=== PATIENT | female | born 1945 | race Caucasian/White ===

== ENCOUNTER → 2018-10-23 13:39 | Outpatient (CLI) | payer MEDICARE, SELFPAY | PROVIDERS: PCP Family Medicine; Visit Provider Family Medicine | DX: M85.852 Other specified disorders of bone density and structure, left thigh (principal); Z78.0 Asymptomatic menopausal state; Z90.722 Acquired absence of ovaries, bilateral | CPT/HCPCS: 77080 ==

== ENCOUNTER → 2018-10-31 11:51 | Outpatient (CLI) | payer MEDICARE, SELFPAY ==
--- NOTE | 2018-10-31 | DI.MG.S_ITS ---
BILATERAL DIGITAL SCREENING MAMMOGRAM 3D/2D WITH CAD: 10/31/2018 CLINICAL: Routine screening. Comparison is made to exams dated: 11/30/2016 mammogram, 06/29/2015 mammogram - [facility], and 11/14/2013 mammogram - [facility]. The tissue of both breasts is heterogeneously dense. This may lower the sensitivity of mammography. Current study was also evaluated with a Computer Aided Detection (CAD) system. No significant masses, calcifications, or other findings are seen in either breast. There has been no significant interval change. IMPRESSION: NEGATIVE There is no mammographic evidence of malignancy. A 1 year screening mammogram is recommended. This exam was interpreted at Station ID: [id number]. NOTE: For mammograms, a report in lay terms will be sent to the patient. Approximately 15% of breast malignancies will not be visualized mammographically. In the management of a palpable breast mass, a negative mammogram must not discourage biopsy of a clinically suspicious lesion. Electronically Signed By: Ayan saxena/chad:10/31/2018 18:26:04 copy to: Michael Garvey letter sent: Normal Exam ACR BI-RADS Category 1: Negative 3341F
== END ==
PROVIDERS: PCP Family Medicine; Visit Provider Family Medicine
DX: Z12.31 Encounter for screening mammogram for malignant neoplasm of breast (principal)
CPT/HCPCS: 77063; 77067

== ENCOUNTER → 2020-05-23 15:09 | Outpatient (CLI) | payer MEDICARE, SELFPAY ==
--- NOTE | 2020-05-23 15:10 | DI.CT.S_ITS ---
PROCEDURE: CT HEAD/BRAIN WO CON INDICATIONS: GLF, R forehead and nasal pain, R eyelid bruisng r/o basalfx TECHNIQUE: Noncontrast 4.5 mm thick angled axial sections acquired from the foramen magnum to the vertex, with coronal and sagittal reformats. For radiation dose reduction, the following was used: automated exposure control, adjustment of mA and/or kV according to patient size. COMPARISON: None. FINDINGS: Image quality: Excellent. CSF spaces: Basal cisterns are patent. No extra-axial fluid collections. Ventricles are normal in size and shape. Brain: No midline shift. No intracranial masses or hemorrhage. Still-white matter interface is normal. Skull and face: Calvarium and visualized facial bones are intact, without suspicious lesions. Sinuses: Visualized sinuses and mastoids are clear. IMPRESSION: Normal for age, source of current pain after trauma symptoms is not seen. Dictated by: Bird Weldon M.D. on 05/23/2020 at 15:42 Approved by: Bird Weldon M.D. on 05/23/2020 at 15:42
--- NOTE | 2020-05-23 15:13 | DI.CT.S_ITS ---
PROCEDURE: CT FACIAL BONES WO CON INDICATIONS: GLF, R forehead and nasal pain TECHNIQUE: Noncontrast 2.5 mm thick axial images acquired from the mandible through the frontal sinuses, with coronal and sagittal reformatting. For radiation dose reduction, the following was used: automated exposure control, adjustment of mA and/or kV according to patient size. COMPARISON: None. FINDINGS: Image quality: Excellent. Bones and teeth: Orbital calloway are intact. Sinus calloway show no fracture or deformity. Nasal bones show bilateral slightly impacted acute appearing nasal bone fractures. The midline nasal septum appears intact. Visualized portions of the mandible demonstrate no fractures or subluxation. Zygomatic arches are intact. Pterygoid plates are intact. Visualized portions of the skull base and auditory canals are intact. Sinuses: Paranasal sinuses are aerated, without fluid levels, mucosal thickening, or mucoceles. Mastoid air cells are aerated. Soft tissues: No edema, masses, or fluid collections. No enlarged lymph nodes. No soft tissue lacerations or debris. Vascular: Visualized vascular structures appear normal in the absence of contrast. Bony vascular foramina and canals are intact. IMPRESSION: Isolated finding of bilateral slightly impacted acute nasal bone fractures. No midline nasal septal fracture or traumatic deviation is present. Dictated by: Bird Weldon M.D. on 05/23/2020 at 15:42 Approved by: Bird Weldon M.D. on 05/23/2020 at 15:44
== END ==
PROVIDERS: PCP Student in an Organized Health Care Education/Training Program; Referring Provider Nurse Practitioner; Visit Provider Nurse Practitioner
DX: S09.90XA Unspecified injury of head, initial encounter (principal); S00.11XA Contusion of right eyelid and periocular area, initial encounter; S09.93XA Unspecified injury of face, initial encounter; R51 Headache; J34.89 Other specified disorders of nose and nasal sinuses; X58.XXXA Exposure to other specified factors, initial encounter
CPT/HCPCS: 70450; 70486

== ENCOUNTER → 2021-02-15 16:52 | Outpatient (CLI) | payer MEDICARE, SELFPAY ==
--- NOTE | 2021-02-15 | DI.MG.S_ITS ---
BILATERAL DIGITAL SCREENING MAMMOGRAM 3D/2D WITH CAD: 02/15/2021 CLINICAL: Routine screening. Comparison is made to exams dated: 10/31/2018 mammogram, 11/30/2016 mammogram, 06/29/2015 mammogram - [facility], and 11/14/2013 mammogram - [facility]. The tissue of both breasts is heterogeneously dense. This may lower the sensitivity of mammography. Current study was also evaluated with a Computer Aided Detection (CAD) system. No significant masses, calcifications, or other findings are seen in either breast. There has been no significant interval change. IMPRESSION: NEGATIVE There is no mammographic evidence of malignancy. A 1 year screening mammogram is recommended. This exam was interpreted at Station ID: [id number]. NOTE: For mammograms, a report in lay terms will be sent to the patient. Approximately 15% of breast malignancies will not be visualized mammographically. In the management of a palpable breast mass, a negative mammogram must not discourage biopsy of a clinically suspicious lesion. Electronically Signed By: Ahmet krause/chad:02/16/2021 08:01:47 letter sent: Normal Exam ACR BI-RADS Category 1: Negative 3341F
== END ==
PROVIDERS: PCP Student in an Organized Health Care Education/Training Program; Referring Provider Student in an Organized Health Care Education/Training Program; Visit Provider Student in an Organized Health Care Education/Training Program
DX: Z12.31 Encounter for screening mammogram for malignant neoplasm of breast (principal)
CPT/HCPCS: 77063; 77067

== ENCOUNTER → 2021-02-26 14:02 | Outpatient (CLI) | payer MEDICARE, SELFPAY | PROVIDERS: PCP Student in an Organized Health Care Education/Training Program; Visit Provider Physician Assistant | DX: R35.0 Frequency of micturition (principal); R35.8 Other polyuria | CPT/HCPCS: 87077; 87086; 87186 ==

== ENCOUNTER → 2021-06-27 10:06 | Outpatient (CLI) | payer MEDICARE, SELFPAY ==
--- NOTE | 2021-06-27 | DI.US.S_ITS ---
PROCEDURE: US PELVIC COMPLETE INDICATIONS: PAIN TECHNIQUE: Real-time scanning was performed of the pelvic organs, with image documentation. Additional endovaginal scanning was necessary due to incomplete visualization of the adnexal and endometrial structures by transabdominal scanning. COMPARISON: None. FINDINGS: Uterus: Uterus is surgically absent. Ovaries: Ovaries are surgically absent. Other: No pathologic free abdominal or pelvic fluid. Limited evaluation of the kidneys is normal. Limited evaluation of the urinary bladder demonstrates bilateral renal jets and large 131 cubic centimeters postvoid residual volume. IMPRESSION: 1. Status post hysterectomy and oophorectomy. 2. Large postvoid urinary bladder residual volume of 131 cubic centimeters. Dictated by: Erika Hazel MD, PhD on 06/27/2021 at 12:03 Approved by: Erika Hazel MD, PhD on 06/27/2021 at 12:05
== END ==
PROVIDERS: PCP Student in an Organized Health Care Education/Training Program; Referring Provider Student in an Organized Health Care Education/Training Program; Visit Provider Student in an Organized Health Care Education/Training Program
DX: R10.2 Pelvic and perineal pain (principal)
CPT/HCPCS: 76830; 76856

== ENCOUNTER → 2022-04-23 13:28 | Outpatient (CLI) | payer MEDICARE, SELFPAY ==
--- NOTE | 2022-04-23 | DI.ECHO.S_ITS ---
[facility] +---------+ : : [address] [place] [place] : : : : [id number] : : : : Phone: [phone]+ Echocardiogram Report + + :Name: BETSEY PERDUE Study Date: 04/23/2022 Height: 62.5 in: :[facility] ReadingLocation: Weight: 160 lb : : Gender: Female BSA: 1.7 m2 : :: 1945 Age: 76 yrs BP: 154/83 mmHg: :Reason For Study: HYPERTENSION : :Ordering Physician: MAMADOU, : :DANIEL Performed By: Wendy Quintero : :Referring: DANIEL AGUIRRE : + + Interpretation Summary 1) Normal left ventricular thickness, size, wall motion, and systolic function (EF 55-60%). 2) Normal right ventricular size and function. 3) No significant valvular abnormalities. 4) No prior Echo available for comparison. Procedure: A two-dimensional transthoracic echocardiogram with color flow and Doppler was performed. The study quality was technically adequate. There is no prior echocardiogram noted for this patient. The patient was in sinus bradycardia with heart rates between 48-52 bpm during the exam. Left Ventricle: The left ventricle is normal in size and wall thickness. The ejection fraction is estimated to be 55-60%. Left ventricular systolic function appears normal without focal wall motion abnormalities. Right Ventricle: The right ventricle is normal in size and function. Atria: The left atrium is mildly dilated. The right atrium is mildly dilated. There is no Doppler evidence for an interatrial shunt. Mitral Valve: The mitral valve is normal in structure and function. There is mild mitral regurgitation. Aortic Valve: The aortic valve is trileaflet. The aortic valve opens well. There is no aortic valve stenosis. No aortic regurgitation is present. Tricuspid Valve: The tricuspid valve is normal in structure and function. There is mild tricuspid regurgitation. The right ventricular systolic pressure is estimated to be at least 22 mmHg based on an estimated right atrial pressure of 3 mm Hg. Pulmonic Valve: The pulmonic valve leaflets are thin and pliable; valve motion is normal. There is mild pulmonic regurgitation. Great Vessels: The aortic root is normal size. The dimensions of the ascending aorta are normal. The IVC is of normal diameter and collapses greater than 50% with a sniff. This suggests a low right atrial pressure of 3 mm Hg. Pericardium/ Pleura There is no pericardial effusion. There is no pleural effusion. MMode/2D Measurements & Calculations LVIDd: 4.5 cm LVOT diam: 2.0 cm LVIDs: 3.0 cm Ao root diam: 3.3 cm FS: 33.1 % asc Aorta Diam: 3.3 cm IVSd: 0.87 cm Ao Arch Diam (Prox Trans): 3.3 cm LVPWd: 0.76 cm LV church. diameter/BSA (cm/m^2): 2.6 LV sys. diameter/BSA (cm/m^2): 1.7 LA A2 area: 23.0 cm2 RA long axis: 5.5 cm LA A4 area: 21.2 cm2 RA area: 20.3 cm2 LA length (vol): 6.0 cm RA vol: 63.5 ml LA vol: 69.0 ml RA : 36.3 ml/m2 LA vol index: 39.4 ml/m2 IVC diam: 1.6 cm RVD1 (basal): 3.9 cm RVD2 (mid): 3.7 cm TAPSE: 2.7 cm Doppler Measurements & Calculations Ao V2 max: 164.5 cm/sec LVOT Max Shawn: 88.0 cm/sec Ao V2 mean: 109.2 cm/sec LV V1 max P.1 mmHg Ao max P.8 mmHg LV V1 VTI: 26.3 cm Ao mean P.6 mmHg LEATHA(I,D): 1.9 cm2 Ao V2 VTI: 43.6 cm LEATHA(V,D): 1.7 cm2 sev ratio: 0.60 LEATHA indexed to BSA (cm^2/m^2): 1.1 MV E max shawn: 86.7 cm/sec TR max shawn: 220.5 cm/sec MV A max shawn: 76.9 cm/sec TR max P.4 mmHg MV E/A: 1.1 PA V2 max: 102.5 cm/sec Med Peak E' Shawn: 5.7 cm/sec PA V2 mean: 69.4 cm/sec E/E' med: 15.1 PA mean P.1 mmHg Lat Peak E' Shawn: 9.2 cm/sec PA pr(Accel): 27.6 mmHg E/E' lat: 9.4 E/e' average: 12.3 MV dec time: 0.16 sec SV(LVOT): 82.2 ml Reading Physician:03:58 PM
== END ==
PROVIDERS: PCP Student in an Organized Health Care Education/Training Program; Referring Provider Internal Medicine Cardiovascular Disease; Visit Provider Internal Medicine Cardiovascular Disease
DX: I10 Essential (primary) hypertension (principal); I08.1 Rheumatic disorders of both mitral and tricuspid valves
CPT/HCPCS: 93306

== ENCOUNTER → 2022-04-25 09:09 | Outpatient (CLI) | payer MEDICARE, SELFPAY ==
[2022-04-25 09:51] LABS: Add Manual Diff / Slide Review NO; Basophils Absolute Auto 100 /uL (0-100); Basophils Percent Auto 1.1 % (0-2); Eosinophils Absolute Auto 200 /uL (0-450); Eosinophils Percent Auto 3.2 % (2-4); Hematocrit 32.1 % (36-46); Hemoglobin 11.1 g/dL (12.0-16.0); Lymphocytes Absolute Auto 1600 /uL (1100-4500); Lymphocytes Percent Auto 25.3 % (25-40); Mean Corpuscular HGB Conc 34.6 % (30-36); Mean Corpuscular Hemoglobin 30.8 PG (26-34); Monocytes Absolute Auto 500 /uL (0-900); Monocytes Percent Auto 8.1 % (3-14); Neutrophils Absolute Auto 3800 /uL (1500-7000); Neutrophils Percent Auto 62.3 % (50-75); Platelet Count 277 X10^3/uL (150-400); Red Blood Cell Count 3.61 X10^6/uL (4.0-5.2); Red Cell Distribution Width 12.8 % (11.6-14.8); White Blood Cell Count 6.2 X10^3/uL (4.5-11.0)
[2022-04-25 10:14] LABS: BUN Creatinine Ratio 25.2 (6-22); Blood Urea Nitrogen 26 mg/dL (7-17); Calcium 9.2 mg/dL (8.4-10.2); Carbon Dioxide 30 mmol/L (22-32); Chloride 101 mmol/L (98-107); Cholesterol 172 mg/dL (140-199); Estimated Glomerular Filt Rate 56 mL/min (>60); Glucose 100 mg/dL (80-110); HDL Cholesterol 99 mg/dL (40-60); HEMOLYSIS < 15 (0-50); LDL Cholesterol Calculated 59 mg/dL (<100); Sodium 137 mmol/L (137-145); Triglycerides 70 mg/dL (35-150)
== END ==
PROVIDERS: PCP Student in an Organized Health Care Education/Training Program; Referring Provider Internal Medicine Cardiovascular Disease; Visit Provider Internal Medicine Cardiovascular Disease
DX: E78.5 Hyperlipidemia, unspecified (principal); I10 Essential (primary) hypertension
CPT/HCPCS: 36415; 80048; 80061; 85025

== ENCOUNTER → 2022-05-04 15:03 | Outpatient (CLI) | payer MEDICARE, SELFPAY ==
--- NOTE | 2022-05-04 15:04 | DI.US.S_ITS ---
PROCEDURE: US EXTREMITY NONVASC LOWER RT INDICATIONS: RIGHT POSTERIOR THIGH MASS TECHNIQUE: Real-time scanning was performed of the right posterior thigh , with image documentation. COMPARISON: None. FINDINGS: 2.7 x 2.2 x 3.5 cm solid heterogeneous subcutaneous soft tissue mass corresponding to the palpable abnormality. Color-flow Doppler demonstrates internal vascularity. IMPRESSION: Nonspecific soft tissue mass. Differential would include both benign and malignant etiologies. If indicated, contrast-enhanced soft tissue MRI could be performed for further assessment. Dictated by: Zenon Aragon [facility] Interpreted: Jordan Wilder MD on 05/04/2022 at 15:41 Transcribed by: ROXANN on 05/04/2022 at 15:42 Approved by: Rashaad Wilder M.D. on 05/15/2022 at 8:08
== END ==
PROVIDERS: PCP Family Medicine; Referring Provider Surgery; Visit Provider Surgery
DX: R22.41 Localized swelling, mass and lump, right lower limb (principal)
CPT/HCPCS: 76882

== ENCOUNTER → 2022-05-21 09:43 | Outpatient (CLI) | payer MEDICARE, SELFPAY ==
--- NOTE | 2022-05-21 09:46 | DI.MRI.S_ITS ---
PROCEDURE: MR FEMUR RT WO/W CON INDICATIONS: right posterior thigh mass TECHNIQUE: Noncontrast coronal T1 spin echo and STIR, sagittal T1 spin echo with fat saturation and STIR, axial T1 spin echo and T2 fast spin echo with fat saturation. After the administration of contrast, axial/sagittal/coronal T1 spin echo with fat saturation through the right thigh. COMPARISON: [facility], US, US EXTREMITY NONVASC LOWER RT, 05/04/2022, 15:16. FINDINGS: Image quality: Excellent. Bones: The visualized bone marrow demonstrates normal signal on all sequences. The overlying cortex appears intact. No abnormal intraosseous enhancement. Soft tissues: A circumscribed lesion is seen in the subcutaneous tissues at the posterior aspect of the thigh abutting the skin surface measuring approximately 3.7 x 2.5 x 2.8 cm. There is intrinsic T1-hyperintense signal without significant postcontrast enhancement. Areas of hypointense T2 signal are seen centrally as well as a small cystic component laterally. No involvement of the deep investing fascia or posterior muscular compartment. There is suspected partial tearing of the right distal gluteus medius tendon with a small amount of overlying trochanteric bursal fluid. The musculature of the thigh is normal in bulk. IMPRESSION: Circumscribed 3.7 cm lesion is seen in the subcutaneous tissues abutting the skin surface at the posterior aspect of the mid thigh. Heterogeneous internal signal intensity is seen without postcontrast enhancement. The appearance is nonspecific, but the lesion is felt to be most likely dermal or subdermal in etiology. Findings may represent a cystic lesion such as a sebaceous cyst versus a benign or low grade non-enhancing solid mass. If not surgically excised, consider intermittent follow up with ultrasound to evaluate for change analyst time. Dictated by: Arpit Jorgensen M.D. on 05/21/2022 at 12:19 Approved by: Arpit Jorgensen M.D. on 05/21/2022 at 12:33
== END ==
PROVIDERS: PCP Family Medicine; Referring Provider Surgery; Visit Provider Surgery
DX: R22.41 Localized swelling, mass and lump, right lower limb (principal)
CPT/HCPCS: 73720; A9579

== ENCOUNTER → 2022-05-28 08:53 | Outpatient (CLI) | payer MEDICARE, SELFPAY ==
[2022-05-28 11:12] LABS: COVID19 -Nasal RAPID Negative (Negative)
== END ==
PROVIDERS: PCP Family Medicine; Visit Provider Surgery
DX: Z20.822 Contact with and (suspected) exposure to COVID-19 (principal); Z01.812 Encounter for preprocedural laboratory examination
CPT/HCPCS: 87635; C9803

== ENCOUNTER 2022-05-29 14:24 | Day surgery (SDC) | payer MEDICARE, SELFPAY ==
--- NOTE | 2022-05-29 | PATH_ITS ---
[facility] Accession Number: [id number] . 01 Material submitted: . thigh - RIGHT THIGH MASS . 01 Diagnosis: Right Thigh, Excision: Pilar cyst. MRV 05/31/2022 1753 Local . 01 Electronically signed: . Oly Han MD, Dermatopathologist NPI- [id number] . 01 Gross description: . Received in formalin in a specimen container labeled with the patient's name and medical record number, is an oval-shaped, fibrotic soft tissue fragments with an attached pink, wrinkled skin ellipse that measures 6.5 x 3.7 x 3.3 cm. No orientation is provided. The actual skin is a slightly wrinkled, caballero-pink skin ellipse that measures 7.0 x 2.5 cm. There is a surgical stitch identified by the peripheral resection margin. The signate surgical stitch is at 12 o'clock. The resection margin is inked blue from 12-3-9 o'clock and inked green from 3-6-9 o'clock. The specimen is serially sectioned to reveal a centrally located, oval-shaped, encapsulated area that measures 2.5 cm in diameter. The area grossly focally abuts the resection margin. It is filled with caballero, pink and yellow, friable contents. Grocery Worker sections are submitted as follows: A1: 3 o'clock margin. A2: 9 o'clock margin. A3-A5: Grocery Worker mass surrounded by soft tissue. ([id number]) /FRR 05/31/2022 0303 Local . 01 Pathologist provided ICD-10: L72.11 . 01 CPT . 327684 Specimen Comment: A courtesy copy of this report has been sent to [phone] Performed at: 01 [facility] [address] [facility], [place], [place] [id number] MD Ayan Hernández MD Phone: [phone]
[2022-05-29] MEDS: LACTATED RINGERS 1,000 ML 42 ML IV (14:55)
[2022-05-29 14:56] VITALS: BP 153/80; PULSE 64; RESP 16; TEMP 36.8; O2SAT 99; BMI 28.3
--- NOTE | 2022-05-29 15:21 | PM.PREOP ---
Pre-operative Note COVID-19 COVID-19 status: Negative Result date/Date tested (Pos, Neg/Pending): 05/28/22 Interval Note History & Physical reviewed/Exam performed by Physician: Yes Changes to H&P: No ASA Class (for procedural sedation): II
[2022-05-29] MEDS: LIDOCAINE 1% W/EPI 20 ML INJ (16:14)
--- NOTE | 2022-05-29 16:21 | SUR.OPER ---
LEFT Lateral on a west bag, head on pillow, gel axillary roll in place, bottom leg bent with gel pad under knee to foot, upper leg straight and supported with pillows. Upper arm supported by pillows and secured over bottom arm to padded arm board. Safety belt at hip, tape over blanket lower legs. POSITION APPROVED BY SURGEON AND ANESTHESIA
--- NOTE | 2022-05-29 16:43 | P.OP_ITS ---
Operative Date/Time/Diagnoses Date of procedure: 05/29/22 Time of procedure: 16:43 Pre-op diagnosis: Right posterior thigh mass Post-op diagnosis: same Procedure & Clinicians Procedure: Excisional biopsy of right posterior thigh mass Same procedure as scheduled: Yes Surgeon: Uri Newsome Anesthesia Type: General Operative Notes Procedure in detail: The patient was brought into the operating room and placed on the table in the supine position. General anesthesia was induced via LMA. The patient was then positioned in the left lateral decubitus position with with a beanbag. She was secured to the table and the right posterior thigh was prepped and draped in the usual fashion. A time-out was performed. The mass appeared to be cystic structure that emanated from the dermis and so a 12 cm by 5 cm ellipse of skin was marked out around the mass and oriented axially. We then dissected the mass away from the subcutaneous adipose tissue. Did enter to the cystic structure laterally and some brown fluid was expressed and suctioned. It was not malodorous. We extended the skin incision slightly more laterally and used a 3- 0 Vicryl to close up the skin around the hole so as not to spill any more fluid. We eventually dissected the mass completely free from subcutaneous tissue. Mass was sent in formalin. We irrigated the wound. A few small bleeders were cauterized. We will we then close the incision and layers using multiple interrupted 3-0 Vicryl dermal sutures followed by a running 4 Monocryl subcuticular closure. Steri-Strips and dressing were applied. The patient was awakened and brought to recovery room. EBL: 10 mL Post-operative Condition: stable Disposition: PACU
[2022-05-29 16:46] VITALS: BP 131/63; PULSE 53; RESP 10; TEMP 36.4; O2SAT 100
--- NOTE | 2022-05-29 16:50 | SUR.PHASEI ---
Pt arrived, airway patent, follows commands.
[2022-05-29 16:51] VITALS: BP 137/64; PULSE 53; RESP 10; O2SAT 98
[2022-05-29 16:54] VITALS: BP 140/63; PULSE 52; RESP 8; O2SAT 99
[2022-05-29 16:56] VITALS: BP 137/63; PULSE 53; RESP 8; O2SAT 99
--- NOTE | 2022-05-29 17:01 | SUR.PHASEI ---
Report to MOUNIKA Cherry
--- NOTE | 2022-05-29 17:29 | SUR.PHASEII ---
1720: Pt A&Ox4, denies pain, VSS and ready to discharge home. Discharge instructions reviewed with patient, and time allowed for questions. IV DC'd intact, dressing applied. Pt voided and dressed independently without any difficulties. Pt left unit via w/c to ER entrance to meet spouse who will transport pt home.
== END 2022-05-29 17:30 | disposition home or self-care (01) ==
PROVIDERS: PCP Family Medicine; Referring Provider Surgery; Visit Provider Surgery
PROC: (CPT 27337; principal; 2022-05-29 16:00)
DX: L72.11 Pilar cyst (principal); I10 Essential (primary) hypertension
CPT/HCPCS: 27337; J1100; J2405; J2704; J3010

== ENCOUNTER → 2022-06-04 15:26 | Outpatient (CLI) | payer MEDICARE, SELFPAY | PROVIDERS: PCP Family Medicine; Visit Provider Nurse Practitioner Family | DX: R30.0 Dysuria (principal) | CPT/HCPCS: 87077; 87086; 87186 ==

== ENCOUNTER → 2022-09-11 10:13 | Outpatient (CLI) | payer MEDICARE, SELFPAY | PROVIDERS: PCP Family Medicine; Referring Provider Family Medicine; Visit Provider Family Medicine | DX: Z78.0 Asymptomatic menopausal state (principal); Z13.820 Encounter for screening for osteoporosis; M85.852 Other specified disorders of bone density and structure, left thigh; Z90.710 Acquired absence of both cervix and uterus | CPT/HCPCS: 77080 ==

== ENCOUNTER → 2022-09-29 17:32 | Outpatient (CLI) | payer MEDICARE, SELFPAY | PROVIDERS: PCP Family Medicine; Visit Provider Physician Assistant | DX: R30.0 Dysuria (principal) | CPT/HCPCS: 87077; 87086; 87186 ==

== ENCOUNTER → 2023-03-07 07:56 | Outpatient (CLI) | payer MEDICARE, SELFPAY ==
--- NOTE | 2023-03-07 | DI.MG.S_ITS ---
BILATERAL DIGITAL SCREENING MAMMOGRAM 3D/2D WITH CAD: 03/07/2023 CLINICAL: Routine screening. Comparison is made to exams dated: 02/15/2021 mammogram, 10/31/2018 mammogram, and 11/30/2016 mammogram - [facility]. Both breasts are heterogeneously dense, which may obscure small masses (category c / 51-75% glandular tissue). Current study was also evaluated with a Computer Aided Detection (CAD) system. No significant masses, calcifications, or other findings are seen in either breast. There has been no significant interval change. IMPRESSION: NEGATIVE There is no mammographic evidence of malignancy. A 1 year screening mammogram is recommended. Based on the Tyrer Cuzick model (a risk assessment model) the patient's lifetime risk is 5.5% and her 10 year risk is 0.0%. According to the ACR, ACS, and NCCN guidelines, an annual breast MRI exam along with mammogram is recommended if the patient's lifetime risk is 20% or greater. This exam was interpreted at Station ID: [id number]. NOTE: For mammograms, a report in lay terms will be sent to the patient. Approximately 15% of breast malignancies will not be visualized mammographically. In the management of a palpable breast mass, a negative mammogram must not discourage biopsy of a clinically suspicious lesion. Electronically Signed By: Dominic meyer/chad:03/07/2023 15:25:54 letter sent: Normal Exam ACR BI-RADS Category 1: Negative 3341F
== END ==
PROVIDERS: PCP Family Medicine; Referring Provider Family Medicine; Visit Provider Family Medicine
DX: Z12.31 Encounter for screening mammogram for malignant neoplasm of breast (principal)
CPT/HCPCS: 77063; 77067

== ENCOUNTER → 2024-09-14 09:54 | Outpatient (CLI) | payer MEDICARE, SELFPAY ==
--- NOTE | 2024-09-14 09:56 | DI.RAD.S_ITS ---
PROCEDURE: XR DEXA AXIAL SKELETON INDICATIONS: Osteopenia COMPARISON: [facility], CR, XR DEXA AXIAL SKELETON, 09/11/2022, 11:49. FINDINGS: Lumbar Spine: Bone mineral density 0.9 g/cm2, T score -0.7, previously -0.7. Left Hip: Bone mineral density 0.774 g/cm2, T score -1.4, previously -1.3. Left Femoral Neck: Bone mineral density 0.644 g/cm2, T score -1.8, previously -1.7. Right Hip: Bone mineral density 0.799 g/cm2, T score -1.2, previously -1.1. Right Femoral Neck: Bone mineral density 0.696 g/cm2, T score -1.4, previously -1.3. Fracture Risk Calculation (when applicable): 10-year fracture risk of a major osteoporotic fracture 13 percent and of a hip fracture 2.8 percent. (T score greater or equal to -1.0 to: NORMAL) (T score from -1.1 to -2.4: OSTEOPENIA) (T score less than or equal to -2.5: OSTEOPOROSIS) IMPRESSION: 1. Normal bone density of the lumbar spine. 2. Osteopenia of the left hip and femoral neck. 3. Osteopenia of the right hip and femoral neck. Follow-up guidelines as follows: Osteoporosis: Consider a repeat DEXA and Vertebral Fracture Assessment (VFA) exam in 2 years or sooner if medically necessary, to reassess this patient's status. Osteopenia: Consider a repeat DEXA in 2-3 years to reassess this patient's status, or if there is a new clinical indication. Normal: Consider a repeat DEXA in 5 years or sooner, or if there is a new clinical indication. All treatment decisions require clinical judgment and consideration of individual patient factors, including patient preferences, comorbidities, previous drug use, risk factors not captured in the FRAX model (e.g., frailty, falls, vitamin D deficiency, increased bone turnover, interval significant decline in bone density ) and possible under- or over-estimation of fracture risk by FRAX. In addition, the NOF Guide recommends that FDA-approved medical therapies be considered in postmenopausal women and men age >= 50 years with a: * Hip or vertebral (clinical or morphometric) fracture * T-score of <=-2.5 at the spine or hip * Ten-year fracture probability by FRAX of >= 3% for hip fracture or >=20% for major osteoporotic fracture. People with diagnosed cases of osteoporosis or at high risk for fracture should have regular bone mineral density tests. For patients eligible for Medicare, routine testing is allowed once every 2 years. The testing frequency can be increased to one year for patients who have rapidly progressing disease, those who are receiving or discontinuing medical therapy to restore bone mass, or have additional risk factors. Dictated by: Costa Toribio M.D. on 09/14/2024 at 12:58 Approved by: Costa Toribio M.D. on 09/14/2024 at 13:02
== END ==
PROVIDERS: PCP Family Medicine; Referring Provider Family Medicine; Visit Provider Family Medicine
DX: M85.89 Other specified disorders of bone density and structure, multiple sites (principal)
CPT/HCPCS: 77080

== ENCOUNTER → 2025-02-24 08:19 | Outpatient (CLI) | payer MEDICARE, SELFPAY ==
--- NOTE | 2025-02-24 08:20 | DI.MG.S_ITS ---
MM screening mammo BI: 02/24/2025. BI-RADS: 1 CLINICAL: 79-year old female for bilateral screening mammogram. Tyrer-Cuzick lifetime risk of 4.0%. No personal or first-degree family history of breast cancer. PRIOR EXAMS 03/07/2023, 02/15/2021, 10/31/2018, 11/30/2016, 06/29/2015. MAMMOGRAPHY TECHNIQUE: 2D and 3D (tomosynthesis) digital mammographic views obtained, with additional images as needed for full coverage. Current study was also evaluated with a Computer Aided Detection (CAD) system. DENSITY C. The breasts are heterogeneously dense, which may obscure small masses. MAMMOGRAPHY FINDINGS Bilateral: No suspicious mass, asymmetry, microcalcification, or other abnormality seen. IMPRESSION: * No evidence of malignancy. RECOMMENDATIONS Bilateral * Annual screening mammography. OVERALL ASSESSMENT CATEGORY BI-RADS-1: Negative. The [employer] recommends annual screening mammography beginning at age 40 for women with average risk of breast cancer. ELECTRONICALLY SIGNED: Debbie Ellison M.D. on 03/01/2025 at 12:57:26 AM PT Interpreting Station ID: [id number]
== END ==
PROVIDERS: PCP Family Medicine; Referring Provider Family Medicine; Visit Provider Family Medicine
DX: Z12.31 Encounter for screening mammogram for malignant neoplasm of breast (principal); R92.333 Mammographic heterogeneous density, bilateral breasts
CPT/HCPCS: 77063; 77067

== ENCOUNTER → 2025-05-19 07:12 | Outpatient (CLI) | payer MEDICARE, SELFPAY ==
--- NOTE | 2025-05-19 07:15 | DI.MRI.S_ITS ---
PROCEDURE: MR STROKE Pre- and post-contrast brain MRI, non-contrast brain MR angiogram, pre- and postcontrast neck MR angiogram INDICATIONS: VISUAL DISTURBANCES TECHNIQUE: Brain: Noncontrast axial T1 spin echo, axial T2 fast spin echo, sagittal and axial FLAIR, coronal T2 fast spin echo, axial gradient echo, axial diffusion and ADC through the brain. After the administration of contrast, axial 3D VIBE of the cranial vasculature and brain. Brain MRA: Non-contrast 3-D time of flight MR angiogram, with multiple hwxehud-wcgmfwoyu-njcuulrpif (MIP) reformats performed. Neck MRA: Axial and sagittal TruFISP through the neck. Coronal dynamic MR angiogram during administration of contrast in the arterial and venous phases, with 3- dimenstional filhkkg-lzjtpmkxq-dybjfpualp (MIP) reformats constructed from subtraction images. COMPARISON: None. FINDINGS: Image quality: Excellent. BRAIN: CSF spaces: Ventricles are normal in size and shape. Basal cisterns are patent. No extra-axial fluid collections. Brain: No intracranial bleeds. Still-white matter interface is normal. Diffusion weighted images show no acute infarct. Brainstem appears normal. Normal intravascular flow voids are present. 2.0 and 0.9 centimeter enhancing mass is in the inferior margin of the left cerebellar hemisphere with surrounding vasogenic edema. There is local mass effect associated with the left cerebellar hemisphere masses/lesion neck edema with slight effacement of the inferior margin of the 4th ventricle. 0.7 and 0.6 centimeter enhancing lesions in the brainstem at the anterior right margin of the rafal and in the right periocular ductal still matter. Skull and face: Calvarial marrow signal is normal. Orbits appear normal. Sinuses: Sinuses and mastoids are clear. BRAIN MR ANGIOGRAM: Anterior circulation: Intracranial internal carotid arteries are normal in size and enhancement. The flow within the paired anterior cerebral arteries is normal and symmetric. The flow within the middle cerebral arteries is normal and symmetric. The anterior communicating artery is seen. No stenoses, occlusions, or aneurysms. Posterior circulation: The visualized portions of the vertebral arteries demonstrate normal caliber, and join to form a normal appearing basilar artery. The flow within the posterior cerebral arteries is normal and symmetric. No stenoses, occlusions, or aneurysms. Macro dura NECK MR ANGIOGRAM: Carotids: Great vessels demonstrate a conventional anatomy as they arise from the aortic arch. The origins of the common carotid arteries appear patent. The calibers and courses of both common carotid arteries are normal. The bifurcation regions appear normal bilaterally. The internal carotid arteries demonstrate normal course and caliber. Posterior circulation: The origins of the vertebral arteries appear patent. More superior portions of both vertebral arteries demonstrate normal course and caliber, and join to form a normal appearing basilar artery. Miscellaneous: Subclavian arteries appear patent. Pre-contrast images through the neck show no soft tissue abnormalities. IMPRESSION: BRAIN MRI: Enhancing masses involving the left cerebellar hemisphere in the brainstem highly suspicious for metastatic disease. No acute or chronic infarcts. No intracranial hemorrhage. BRAIN MR ANGIOGRAM: No large vessel occlusion, significant vascular stenosis, vascular dissection or aneurysm. NECK MR ANGIOGRAM: No large vessel occlusion, significant vascular stenosis, vascular dissection or aneurysm. Dictated by: Erika Hazel MD, PhD on 05/19/2025 at 11:35 Approved by: Erika Hazel MD, PhD on 05/19/2025 at 11:42
== END ==
PROVIDERS: PCP Family Medicine; Referring Provider Family Medicine; Visit Provider Family Medicine
DX: G93.6 Cerebral edema (principal); G93.9 Disorder of brain, unspecified; H53.8 Other visual disturbances
CPT/HCPCS: 70544; 70549; 70553; A9579

== ENCOUNTER → 2025-05-20 14:40 | Outpatient (CLI) | payer MEDICARE, SELFPAY ==
--- NOTE | 2025-05-20 14:43 | DI.CT.S_ITS ---
PROCEDURE: CT CHEST ABD PEL W CON INDICATIONS: hx of brain mass, mets survey TECHNIQUE: After the administration of intravenous contrast, 5 mm thick sections acquired from the lung apices to the symphysis. 5 mm coronal and sagittal reformats were performed, with additional 7 mm MIP reformats through the lungs. For radiation dose reduction, the following was used: automated exposure control, adjustment of mA and/or kV according to patient size. COMPARISON: None. FINDINGS: Image quality: Excellent. CHEST: Lower Neck: No enlarged lymph nodes. Thyroid: No thyroid nodules which require sonographic follow up, per consensus guidelines. Axillae: No enlarged lymph nodes. Chest Wall: Unremarkable. Lungs and Pleura: No pneumothorax or pleural effusions. There is mass-like consolidation in the left parahilar region, involving the lingula and the adjacent superior region of the left lower lobe, with occlusion of the lingular bronchus. This measures 5 x 2.9 cm. There is extension into the left superior pulmonary vein Heart: Heart size is normal. No pericardial effusion. Thoracic Vessels: The aorta and pulmonary arteries demonstrate normal size. Mediastinum and Violet: There are enlarged bilateral lower lateral cervical nodes measuring up to 1.9 cm short axis on the left. There is a confluent se mass in the left superior mediastinum and prevascular region measuring 4.15 x 3.2 cm. Other enlarged nodes more inferiorly in the left prevascular region measuring 2.15 cm short axis. Mildly enlarged nodes in the left paratracheal region and subcarinal region measuring up to 1.3 cm short axis. Esophagus: No wall thickening. No hiatal hernia. ABDOMEN: Liver: No solid mass. Gallbladder: No radiopaque gallstones or wall thickening. Biliary ducts: No biliary dilation. Pancreas: No ductal dilation. Spleen: Size is within normal limits. Adrenal Glands: No adrenal nodules. Kidneys and Ureters: No hydronephrosis. No solid mass. No complex renal cystic lesion which requires follow up. Stomach and Bowel: Normal colonic caliber, without significant wall thickening. Peritoneum: No abnormal intraperitoneal fluid. No free air. Ventral Wall: No significant ventral hernia. Abdominal Nodes: No retroperitoneal or mesenteric adenopathy by size criteria. Vessels: Aorta and inferior vena cava are normal in size. PELVIS: Pelvic Organs: Post hysterectomy. No adnexal mass seen. Bladder: No bladder wall thickening, accounting for underdistention. Pelvic Nodes: No enlarged lymph nodes. Miscellaneous: No inguinal hernias are seen. Bones: No aggressive osseous abnormality. IMPRESSION: 1. 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 2. There is tumor thrombus in the left superior pulmonary vein, which however does not extend to the left atrial cavity. 3. There is extensive bilateral lateral cervical and left mediastinal malignant adenopathy. Better assessment of extent of disease can be performed with PET-CT. 4. No suspicious focal lesion otherwise to suggest distant metastasis in the chest, abdomen and pelvis. Dictated by: Kvng Turner M.D. on 05/20/2025 at 21:25 Approved by: Kvng Turner M.D. on 05/20/2025 at 21:38
--- NOTE | 2025-05-20 14:43 | DI.CT.S_ITS ---
PROCEDURE: CT SOFT TISSUE NECK W CON INDICATIONS: hx of brain mass,mets survey TECHNIQUE: After the administration of intravenous contrast, 3.0 mm axial sections acquired from the sella to the aortic arch. Additional oblique axial 3.0 mm sections acquired through the pharynx. 3 mm thick coronal and sagittal reformats were generated. For radiation dose reduction, the following was used: automated exposure control. COMPARISON: [facility], CT, CT CHEST ABD PEL W CON, 05/20/2025, 16:24. FINDINGS: Image quality: Excellent. Lymph nodes: Bilateral supraclavicular adenopathy. For instance, the 1.7 x 1.7 centimeter left supraclavicular fossa node (series 2, image 64). Vessels: Visualized vasculature appears patent. Neck spaces: The oropharynx, nasopharynx, and pharynx demonstrate no mucosal lesions. The vocal cords, false vocal cords, pyriform sinuses, epiglottis, vallecula, and tongue base all appear normal. Extramucosal spaces appear unremarkable. Glands: The parotid and submandibular glands appear normal. Thyroid gland is unremarkable.. 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 Mediastinal adenopathy. For instance, the prevascular node measuring 4.3 x 2.1 centimeter (series 2, image 78). Bones: No suspicious bony lesions. Visualized sinuses and mastoids appear unremarkable. Suspected bone island in the pedicle of the C6 vertebral body based on Hounsfield units criteria. IMPRESSION: Stable mass in the left cerebellum, resulting in moderate vasogenic edema without midline shift. Supraclavicular fossa and mediastinal adenopathy. Lung primary is a consideration in this setting. Please see chest CT for further discussion regarding the likely primary. Dictated by: Yan Paris M.D. on 05/21/2025 at 16:56 Approved by: Yan Paris M.D. on 05/21/2025 at 17:01
== END ==
PROVIDERS: PCP Family Medicine; Referring Provider Family Medicine; Visit Provider Family Medicine
DX: C77.8 Secondary and unspecified malignant neoplasm of lymph nodes of multiple regions (principal); C80.1 Malignant (primary) neoplasm, unspecified; G93.89 Other specified disorders of brain; G93.6 Cerebral edema; R91.8 Other nonspecific abnormal finding of lung field; I26.99 Other pulmonary embolism without acute cor pulmonale; Z90.710 Acquired absence of both cervix and uterus
CPT/HCPCS: 70491; 71260; 74177; Q9967

== ENCOUNTER → 2025-08-27 07:59 | Outpatient (CLI) | payer MEDICARE, SELFPAY ==
--- NOTE | 2025-08-27 08:02 | DI.CT.S_ITS ---
PROCEDURE: CT CHEST ABDOMEN W CON INDICATIONS: lung cancer TECHNIQUE: After the administration of intravenous contrast, 5 mm thick sections acquired from the lung apices to the iliac crests. 5 mm coronal and sagittal reformats were performed, with additional 7 mm coronal MIP reformats through the lungs. For radiation dose reduction, the following was used: automated exposure control, adjustment of mA and/or kV according to patient size. COMPARISON: [facility], CT, CT CHEST ABD PEL W CON, 05/20/2025, 16:24. [facility], CT, CT VERAN CHEST, 06/11/2025, 15:56. FINDINGS: Image quality: Diagnostic. CHEST: Lower Neck: No enlarged lymph nodes. Adjacent to the left lateral border of the thyroid lobe a previously significantly enlarged lymph node has reduced in size to now measuring 1.3 cm. Thyroid: No thyroid nodules which require sonographic follow up, per consensus guidelines. Axillae: No enlarged lymph nodes. Chest Wall: Unremarkable. Bones: Unremarkable. Lungs and Pleura: No pneumothorax or pleural effusions. Post treatment reduction of left mediastinal and left hilar adenopathy has further progressed, now with only a small degree of residual soft tissue radiodensity within the fatty soft tissues of the anterior mediastinum just above the aortic arch. Anterior mediastinal adenopathy along the left lateral border of the aortic arch also has improved, with only mild residual slightly enlarged nodes in that area. A left hilar mass has further involuted, with soft tissue thickening extending along the lingular segment bronchus, reduced in size and volume. No new adenopathy or pulmonary metastatic disease is found. Heart: Heart size is normal. No pericardial effusion. Thoracic Vessels: The aorta and pulmonary arteries demonstrate normal size. Mediastinum and Violet: No enlarged lymph nodes. Esophagus: No wall thickening. No hiatal hernia. ABDOMEN: Liver: No solid mass. Gallbladder: No radiopaque gallstones or wall thickening. Biliary ducts: No biliary dilation. Pancreas: No ductal dilation. Spleen: Size is within normal limits. Adrenal Glands: No adrenal nodules. Kidneys and Ureters: No hydronephrosis. No solid mass. No complex renal cystic lesion which requires follow up. Stomach and Bowel: Normal colonic caliber, without significant wall thickening. Peritoneum: No abnormal intraperitoneal fluid. No free air. Ventral Wall: No significant ventral hernia. Abdominal Nodes: No retroperitoneal or mesenteric adenopathy by size criteria. Vessels: Aorta and inferior vena cava are normal in size. PELVIS: Pelvic Organs: Unremarkable. Bladder: No bladder wall thickening, accounting for underdistention. Pelvic Nodes: No enlarged lymph nodes. Miscellaneous: No inguinal hernias are seen. Bones: No aggressive osseous abnormality. IMPRESSION: Continued reduction in size and volume of lower left neck, left upper mediastinal, and left hilar adenopathy with only mild residual in those areas. No new adenopathy or metastatic disease is found. Dictated by: Bird Weldon M.D. on 08/27/2025 at 15:56 Approved by: Bird Weldon M.D. on 08/27/2025 at 16:06
== END ==
PROVIDERS: PCP Family Medicine
DX: C34.92 Malignant neoplasm of unspecified part of left bronchus or lung (principal)
CPT/HCPCS: 71260; 74160; Q9967